=== PATIENT | male | born 1950 | race Caucasian/White ===

== ENCOUNTER 2019-01-03 10:00 | Inpatient (IN) ==
[~2019-01-03 10:00] MED LIST: ceFAZolin 1,000 MG, Sodium Chloride IRRigation 1,000 ML IR ONE
[2019-01-03] MEDS ORDERED: CeFAZolin Syr 2,000MG/20 ML 2,000 MG/20 ML SYRINGE IVPB ONE (10:22)
[2019-01-03] MEDS ORDERED: Ringers Solution, Lactated 1,000 ML IVC SCH (10:30)
[2019-01-03] MEDS ORDERED: *HR* Midazolam HCl 2 MG/2 ML VIAL ONE (10:30)
[2019-01-03] MEDS ORDERED: *HR* FentaNYL (PF) 100 MCG/2 ML VIAL ONE (10:30)
[2019-01-03] MEDS ORDERED: *HR* Propofol 200 MG/20 ML VIAL IVP ONE (10:30)
[2019-01-03] MEDS ORDERED: Lidocaine -MPF 2% 2 ML VIAL ONE (10:33)
[2019-01-03] MEDS ORDERED: *HR* Succinylcholine 200 MG/10 ML VIAL IVP ONE (10:35)
[2019-01-03] MEDS ORDERED: *HR* Phenylephrine 10 MG/ML VIAL ONE (10:39)
[2019-01-03] MEDS ORDERED: *HR* Remifentanil 2 MG VIAL IVP ONE (10:41)
[2019-01-03] MEDS ORDERED: *HR* Heparin 5,000 UNIT/ML VIAL ONE ×3 (10:45→14:54)
[2019-01-03] MEDS ORDERED: Lidocaine HCL 4 ML Topical Solution (Laryng-O-Jet Kit Sterile Pak) TP ONE (10:45)
[2019-01-03] MEDS ORDERED: Acetaminophen IV 1,000 MG/100 ML INFUS..BTL IVPB ONE (10:59)
[2019-01-03] MEDS ORDERED: *HR* Promethazine 25 MG/ML VIAL IVP PRN (11:00)
[2019-01-03] MEDS ORDERED: Ondansetron 4 MG/2 ML VIAL IVP ONE (11:00)
[2019-01-03] MEDS ORDERED: *HR* HYDROmorphone (PF) 1 MG/ML SYRINGE IVP PRN (11:00)
[2019-01-03] MEDS ORDERED: *HR* Meperidine 25 MG/ML SYRINGE IVP PRN (11:00)
[2019-01-03] MEDS ORDERED: Ketorolac 30 MG/ML VIAL ONE ×2 (11:10→15:06)
[2019-01-03] MEDS ORDERED: Heparin 1,000 UNITS/500 mL 500 ML ONE (11:58)
[2019-01-03] MEDS ORDERED: Protamine Sulfate 50 MG/5 ML VIAL IVP ONE (12:04)
[2019-01-03] MEDS ORDERED: Lidocaine 1% 20 ML MDV ONE (12:04)
[2019-01-03] MEDS ORDERED: Heparin 1,000 UNITS/500 mL 1,000 ML ONE (12:08)
[2019-01-03] MEDS ORDERED: Dexamethasone 4 MG/ML VIAL ONE (13:11)
[2019-01-03] MEDS ORDERED: Ondansetron 4 MG/2 ML VIAL ONE (13:11)
[2019-01-03] MEDS ORDERED: EPHEDrine 50 MG/ML VIAL ONE (15:01)
[2019-01-03] MEDS ORDERED: *HR* HYDROcodone/Acet 5/325 mg TABLET PO PRN (18:16)
[2019-01-03] MEDS ORDERED: Acetaminophen 325 MG TABLET PO PRN (18:16)
[2019-01-03] MEDS ORDERED: valACYclovir 500 MG TABLET PO PRN (18:16)
[2019-01-03] MEDS ORDERED: Ondansetron 4 MG/2 ML VIAL IVP PRN (18:16)
[2019-01-03] MEDS ORDERED: Naloxone 0.4 MG/ML INJ IVP PRN (18:16)
[2019-01-03] MEDS ORDERED: *HR* Labetalol 20 MG/4 ML SYRINGE IVP PRN (18:16)
[2019-01-03] MEDS ORDERED: 0.9 % Sodium Chloride 250 ML ONE (20:11)
[2019-01-03] MEDS: Lisinopril 20 MG TABLET PO SCH (20:14)
[2019-01-03] MEDS ORDERED: NON-FORMULARY MEDICATION 1 EACH EACH (Turmeric Root Extract [Turmeric] 500 MG) PO SCH (21:00)
[2019-01-04 02:04] LABS: Basophils % 0.2 %; Hematocrit 38.8 % (37.5-50.1); Hemoglobin 13.2 g/dL (12.9-16.9); Immature Granulocytes % 0.4 % (0-4); Lymphocytes # 1.2 K/mcL (0.6-4.6); Lymphocytes % 11.5 %; Mean Corpuscular Hemoglobin 31.1 pg (28.0-33.3); Mean Corpuscular Volume 91.5 fL (83.0-100.0); Mean Platelet Volume 9.6 fL (9.4-12.4); Monocytes # 0.5 K/mcL (0.0-1.3); Monocytes % 4.7 %; Platelet Count 230 K/mcL (140-400); Red Blood Count 4.24 M/mcL (4.19-5.50); Red Cell Distribution Width 12.6 % (11.5-14.5); Segmented Neutrophils % 83.2 %; White Blood Count 10.8 K/mcL (4.3-11.1)
[2019-01-04 02:32] LABS: BUN/Creatinine Ratio 10 (6-26); Blood Urea Nitrogen 13 mg/dL (8-23); Calcium 8.8 mg/dL (8.6-10.3); Carbon Dioxide 22 mEq/L (23-29); Chloride 102 mEq/L (98-107); Glucose 152 mg/dL (70-105); Osmolality,Calculated 277 (280-300); Potassium 5.1 mEq/L (3.5-5.1); Sodium 132 mEq/L (136-145); eGFR For African Americans > 60 (> 60); eGFR For Non-African Americans 57 (> 60)
[2019-01-04] MEDS ORDERED: hydrOXYzine pamoate 25 MG CAPSULE PO ONE (03:09)
[2019-01-04] MEDS: Lisinopril 20 MG TABLET PO SCH (08:38)
[2019-01-04] MEDS ORDERED: Aspirin Enteric Coated 81 MG Tablet PO SCH (09:00)
[2019-01-04] MEDS ORDERED: Multivit/Ca/Min/Fe/FA 1 TAB TABLET PO SCH (09:00)
[2019-01-04 11:54] VITALS: BP 118/72
== END 2019-01-04 14:44 | disposition home or self-care (01) | DRG 39 ==
LOC: SAMDAY 10:00 → 2NNU 16:52
PROVIDERS: ADMIT Surgery Vascular Surgery; ATTEND Surgery Vascular Surgery